=== PATIENT | female | born 1965 | race American Indian/Alaskan Native ===

== ENCOUNTER 2021-02-11 11:51 | Outpatient (CLI) | payer OTHER ==
[2021-02-11] MEDS ORDERED: ALBUTEROL 2.5 MG/3 ML NEBU IH ONE (13:05)
== END 2021-02-11 11:52 | disposition home or self-care (01) ==
LOC: PF 11:51
PROVIDERS: ATTEND Internal Medicine
DX: Z02.71 Encounter for disability determination (principal)
CPT/HCPCS: 94640; A9270